=== PATIENT | female | born 1970 | race Caucasian/White ===

== ENCOUNTER 2021-01-08 01:46 | Observation (INO) ==
[2021-01-08] MEDS ORDERED: SODIUM CHLORIDE 0.9% 1,000 ML IV STA (02:47)
[2021-01-08] MEDS ORDERED: ONDANSETRON 4 MG/2 ML VIAL IV STA (02:47)
[2021-01-08] MEDS ORDERED: MECLIZINE 25 MG TABLET PO STA (02:47)
[2021-01-08 03:55] LABS: Alanine Aminotransferase 19 U/L (13-56); Albumin 3.3 G/DL (3.4-5.0); Alkaline Phosphatase 48 U/L (45-117); Aspartate Amino Transferase 17 U/L (0-37); Bilirubin,Total < 0.39 MG/DL (0.2-1.0); Blood Urea Nitrogen 14 MG/DL (7-18); Calcium 8.7 MG/DL (8.5-10.1); Carbon Dioxide 28 MMOL/L (21-32); Glucose 124 MG/DL (74-106); Osmolality,Calculated 280.4 MOS/KG (273-304); Sodium 140 MMOL/L (136-145); Total Protein 6.8 G/DL (6.4-8.2)
[2021-01-08 03:56] LABS: Estimated Glom Filtration Rate 0 ML/MIN
[2021-01-08] MEDS ORDERED: MAGNESIUM SULF RIDER 2 GM/50 ML PREMIX IV STA (04:09)
[2021-01-08 04:42] LABS: Basophils # 0.1 10*3/uL (0.0-0.2); Basophils % 0.7 % (0.0-0.8); Eosinophils % 0.3 % (0.00-10.9); Hematocrit 36.1 VOL% (35.7-47.0); Hemoglobin 12.6 GM/DL (12.0-16.0); Immature Granulocytes % 0.9 %; Immature Granulocytes Absolute 0.08 #; Lymphocytes # 1.8 10*3/uL (1.4-4.0); Lymphocytes % 19.6 % (21.3-54.2); Mean Corpuscular HGB Conc 34.9 GM/DL (32-36); Mean Corpuscular Volume 94.5 FL (87-102); Monocytes % 8.5 % (1.7-12.7); Platelet Count 155 T/CUMM (130-400); Red Blood Count 3.82 MC/CUMM (3.8-5.5); Red Cell Distribution Width 12.1 % (9.3-17.3); White Blood Count 9.1 T/CUMM (4-12)
[2021-01-08 04:48] LABS: Bilirubin,Urine Negative (Negative); Blood, Urine Small mg/dL (Negative); Glucose,Urine (UA) Negative (Negative); Ketones,Urine 5 mg/dL (Negative); Mucus,Urine Few /LPF (Occasional); Nitrite,Urine Negative (Negative); Protein,Urine Negative; RBC,Urine 2 /HPF (0-4); Urine Appearance CLEAR (Clear); Urine Color Yellow (Yellow); Urine Specific Gravity 1.024 (1.001-1.035); Urine Urobilinogen < 2.0 EU/DL (0.2-1.0)
[2021-01-08 04:52] LABS: PT Patient Result 11.1 SECS (10.5-12.0)
[2021-01-08 04:56] LABS: Barbiturates Screen,Urine Negative (Negative); Benzodiazepines Screen,Urine Negative (Negative); Cannabinoid Screen,Urine Negative (Negative); Opiate Screen,Urine Negative (Negative); Phencyclidine Screen,Urine Negative (Negative)
[2021-01-08] MEDS ORDERED: GLUCAGON 1 MG VIAL IM PRN (05:51)
[2021-01-08] MEDS ORDERED: ONDANSETRON 4 MG/2 ML VIAL IV PRN (05:51)
[2021-01-08] MEDS ORDERED: ZALEPLON 5 MG CAPSULE PO PRN (05:51)
[2021-01-08] MEDS ORDERED: DEXTROSE 50% 25 GM/50 ML VIAL IV PRN (05:51)
[2021-01-08] MEDS ORDERED: SODIUM CHLORIDE 0.9% 1,000 ML IV SCH (06:00)
[2021-01-08] MEDS ORDERED: HALOPERIDOL 5 MG/ML AMP IM ONE (08:46)
[2021-01-08] MEDS: DIVALPROEX 500 MG TABLET PO SCH ×2 (09:47→21:37)
[2021-01-08] MEDS: LEVOTHYROXINE 112 MCG TABLET PO SCH (09:47)
[2021-01-08] MEDS: lisinopriL 10 MG TABLET PO SCH (09:48)
[2021-01-08] MEDS: METOPROLOL TARTRATE 25 MG TABLET PO SCH ×2 (09:48→21:37)
[2021-01-08] MEDS: ENOXAPARIN 40 MG/0.4 ML SYRINGE SUBCUT SCH (10:25)
[2021-01-08] MEDS: MECLIZINE 25 MG TABLET PO SCH ×3 (15:51→21:37)
[2021-01-08] MEDS: SODIUM CHLORIDE 0.9% 1,000 ML IV SCH (16:17)
[2021-01-08] MEDS: DIVALPROEX 250 MG TABLET PO SCH (21:37)
[2021-01-09 05:36] LABS: Basophils # 0.1 10*3/uL (0.0-0.2); Basophils % 0.7 % (0.0-0.8); Eosinophils # 0.1 10*3/uL (0.0-0.87); Eosinophils % 1.9 % (0.00-10.9); Hematocrit 34.2 VOL% (35.7-47.0); Hemoglobin 11.4 GM/DL (12.0-16.0); Immature Granulocytes % 1.2 %; Immature Granulocytes Absolute 0.08 #; Lymphocytes # 2.9 10*3/uL (1.4-4.0); Lymphocytes % 42.4 % (21.3-54.2); Mean Corpuscular HGB Conc 33.3 GM/DL (32-36); Mean Corpuscular Volume 97.7 FL (87-102); Mean Platelet Volume 10.4 FL (9.6-12.0); Monocytes % 9.5 % (1.7-12.7); Neutrophils % 44.3 % (38.7-73.9); Platelet Count 162 T/CUMM (130-400); Red Cell Distribution Width 12.3 % (9.3-17.3); White Blood Count 6.8 T/CUMM (4-12)
[2021-01-09 06:13] LABS: Microcytosis 1+; Platelet Estimate Adequate
[2021-01-09 06:22] LABS: Calcium 8.3 MG/DL (8.5-10.1); Osmolality,Calculated 278.3 MOS/KG (273-304); Potassium 3.8 MMOL/L (3.5-5.1)
[2021-01-09 06:26] LABS: Alanine Aminotransferase 15 U/L (13-56); Albumin 2.6 G/DL (3.4-5.0); Alkaline Phosphatase 40 U/L (45-117); Aspartate Amino Transferase 10 U/L (0-37); Bilirubin,Total < 0.39 MG/DL (0.2-1.0); Blood Urea Nitrogen 9 MG/DL (7-18); Carbon Dioxide 26 MMOL/L (21-32); Estimated Glom Filtration Rate 134 ML/MIN; Glucose 89 MG/DL (74-106); Osmolality,Calculated 278.3 MOS/KG (273-304); Potassium 3.8 MMOL/L (3.5-5.1); Sodium 141 MMOL/L (136-145); Total Protein 5.7 G/DL (6.4-8.2)
[2021-01-09] MEDS: LEVOTHYROXINE 112 MCG TABLET PO SCH (06:49)
[2021-01-09] MEDS: ENOXAPARIN 40 MG/0.4 ML SYRINGE SUBCUT SCH (06:49)
[2021-01-09] MEDS: SODIUM CHLORIDE 0.9% 1,000 ML IV SCH ×2 (09:14→09:25)
[2021-01-09] MEDS: MECLIZINE 25 MG TABLET PO SCH ×3 (09:14→22:04)
[2021-01-09] MEDS: DIVALPROEX 500 MG TABLET PO SCH ×2 (09:14→22:04)
[2021-01-09] MEDS: lisinopriL 10 MG TABLET PO SCH (09:14)
[2021-01-09] MEDS ORDERED: MAGNESIUM SULF RIDER 4 GM/100 ML PREMIX IV PRN (12:38)
[2021-01-09] MEDS ORDERED: MAGNESIUM SULF RIDER 2 GM/50 ML PREMIX IV PRN (12:38)
[2021-01-09] MEDS: ACETAMINOPHEN 325 MG TABLET PO PRN ×2 (14:39→22:03)
[2021-01-09] MEDS: DIVALPROEX 250 MG TABLET PO SCH (22:04)
[2021-01-10 05:54] LABS: Risk Ratio 3.56; VLDL Cholesterol 29.6 MG/DL
[2021-01-10] MEDS: LEVOTHYROXINE 112 MCG TABLET PO SCH (06:32)
[2021-01-10] MEDS: ENOXAPARIN 40 MG/0.4 ML SYRINGE SUBCUT SCH (06:32)
[2021-01-10 08:40] LABS: Calcium 8.4 MG/DL (8.5-10.1); Osmolality,Calculated 275.4 MOS/KG (273-304); Potassium 3.9 MMOL/L (3.5-5.1)
[2021-01-10] MEDS: lisinopriL 10 MG TABLET PO SCH (10:03)
[2021-01-10] MEDS: MECLIZINE 25 MG TABLET PO SCH ×3 (10:03→14:16)
[2021-01-10] MEDS: DIVALPROEX 500 MG TABLET PO SCH (10:03)
[2021-01-10 11:39] VITALS: BP 119/69
[2021-01-10] MEDS ORDERED: CETIRIZINE 10 MG TABLET PO SCH (14:00)
[2021-01-10] MEDS: ACETAMINOPHEN 325 MG TABLET PO PRN (14:04)
== END 2021-01-10 14:54 | disposition home or self-care (01) ==
LOC: SUATTDRO → N.ED 01:46 → N.EDINP 01:46 → SUATTDRO 05:51 → N.4E 08:15
PROVIDERS: ADMIT Internal Medicine; ATTEND Internal Medicine